=== PATIENT | male | born 1990 | race African-American/Black ===

== ENCOUNTER 2017-01-11 14:18 | Inpatient (IN) | payer OTHER ==
[2017-01-11 17:11] VITALS: BMI 22.1
[2017-01-11] MEDS ORDERED: MAG HYDROX/AL HYDROX/SIMETH 30 ML UNIT-DOSE CUP PO PRN (17:51)
[2017-01-11] MEDS ORDERED: MENTHOL/PHENOL 1 EACH UD MM PRN (17:51)
[2017-01-11] MEDS ORDERED: LOPERAMIDE HCL 2 MG CAPSULE PO PRN (17:51)
[2017-01-11] MEDS ORDERED: MAGNESIUM HYDROX 2400MG/30ML ORAL SUSPENSION 30 ML CUP PO PRN (17:51)
[2017-01-11] MEDS ORDERED: guaiFENesin/D-METHORPHAN HB 10 ML UNIT-DOSE CUPS PO PRN (17:51)
[2017-01-11] MEDS ORDERED: hydrOXYzine PAMOATE 50 MG CAPSULE (FP) PO PRN (17:51)
[2017-01-11] MEDS ORDERED: ACETAMINOPHEN 325 MG TABLET (FP) PO PRN (17:51)
[2017-01-11] MEDS ORDERED: P-EPHED 60MG/TRIPROLIDI 2.5MG TABLET PO PRN (17:51)
[2017-01-11] MEDS ORDERED: NICOTINE POLACRILEX 2 MG GUM BC PRN (17:51)
[2017-01-11] MEDS ORDERED: MAGNESIUM CITRATE 300 ML BOTTLE PO PRN (17:51)
--- NOTE | 2017-01-11 17:51 | HP ---
CIWA Score - CIWA Score Nausea/Vomitin-Mild Nausea/No Vomiting Muscle Tremors: 5 Anxiety: 5 Agitation: 3 Paroxysmal Sweats: 2 Orientation: 1-Uncertain about Date Tacttile Disturbances: 0-None Auditory Disturbances: 0-None Visual Disturbances: 0-None Headache: 0-None Present CIWA-Ar Total Score: 17 Admission ROS BHS - HPI Chief Complaint: WITHDRAWAL SX Allergies/Adverse Reactions: Allergies Allergy/AdvReac Type Severity Reaction Status Date / Time haloperidol [From Haldol] AdvReac Severe Swelling Verified 01/11/17 17:16 haloperidol lactate AdvReac Severe Swelling Verified 01/11/17 17:16 [From Haldol] History of Present Illness: 26 YEARS OLD MALE WITH LONG HISTORY OF ALCOHOL NICOTINE DEPENDENCE, HAS HIV SINCE 2011 AND DEPRESSION IS ADMITTED TO DETOX Exam Limitations: No Limitations - Ebola screening Have you traveled outside of the country in the last 21 days: No Have you had contact with anyone from an Ebola affected area: No Have you been sick,other than usual withdrawal symptoms: No Do you have a fever: No - Review of Systems Constitutional: Chills, Loss of Appetite, Changes in sleep, Unexplained wgt Loss EENT: reports: No Symptoms Reported Respiratory: reports: No Symptoms reported Cardiac: reports: No Symptoms Reported GI: reports: Nausea, Poor Fluid Intake, Abdominal cramping : reports: No Symptoms Reported Musculoskeletal: reports: No Symptoms Reported Integumentary: reports: No Symptoms Reported Neuro: reports: Tremors Endocrine: reports: No Symptoms Reported Hematology: reports: No Symptoms Reported Psychiatric: reports: Judgement Intact, Depressed Other Systems: Reviewed and Negative Patient History - Patient Medical History Hx Anemia: No Hx Asthma: No Hx Chronic Obstructive Pulmonary Disease (COPD): No Hx Cancer: No Hx Cardiac Disorders: No Hx Congestive Heart Failure: No Hx Hypertension: No Hx Hypercholesterolemia: No Hx Pacemaker: No HX Cerebrovascular Accident: No Hx Seizures: No Hx Dementia: No Hx Diabetes: No Hx Gastrointestinal Disorders: Yes Hx Liver Disease: No Hx Genitourinary Disorders: No Hx Sexually Transmitted Disorders: No Hx Renal Disease (ESRD): No Hx Human Immunodeficiency Virus (HIV): Yes (TESTED POSITIVE 05/04/2012. NOT ON MEDICATIONS, LAST DOSE "LONG TIME AGO") Hx Hepatitis C: No Hx Depression: Yes Hx Suicide Attempt: No Hx Bipolar Disorder: No Hx Schizophrenia: No - Patient Surgical History Past Surgical History: No Hx Neurologic Surgery: No Hx Cataract Extraction: No Hx Cardiac Surgery: No Hx Lung Surgery: No Hx Breast Surgery: No Hx Breast Biopsy: No Hx Abdominal Surgery: No Hx Appendectomy: No Hx Cholecystectomy: No Hx Genitourinary Surgery: No Hx Orthopedic Surgery: No - PPD History Previous Implant?: Yes Documented Results: Negative w/o proof Implanted On Prior [facility] Admission?: Yes Date: 07/13/15 Results: 0 mm PPD to be Administered?: Yes - Smoking Cessation Smoking history: Current every day smoker Have you smoked in the past 12 months: Yes Aproximately how many cigarettes per day: 20 Cigars Per Day: 0 Hx Chewing Tobacco Use: No Initiated information on smoking cessation: Yes 'Breaking Loose' booklet given: 01/11/17 - Substance & Tx. History Hx Alcohol Use: Yes Hx Substance Use: No Substance Use Type: Alcohol Hx Substance Use Treatment: Yes - Substances Abused Alcohol Route: Oral Frequency: Daily Amount used: 5 24 oz beers 2 pints vodka Age of first use: 23 Date of Last Use: 01/11/17 crystal meth Route: Smoking Frequency: Daily Amount used: 1/2 gram Age of first use: 24 Date of Last Use: 01/07/17 Family Disease History - Family Disease History Family Disease History: Heart Disease: Father (HTN,alcohol ), Mother (, alcohol,) Admission Physical Exam BHS - Vital Signs Vital Signs: Vital Signs - 24 hr 01/11/17 17:09 Temperature 97.7 F Pulse Rate 87 Respiratory 20 Rate Blood Pressure 112/60 - Physical General Appearance: Yes: Appropriately Dressed, Mild Distress, Alcohol on Breath , Thin, Tremorous, Irritable, Sweating, Anxious HEENTM: Yes: Hearing grossly Normal, Normal ENT Inspection, Normocephalic, Normal Voice Respiratory: Yes: Chest Non-Tender, Lungs Clear, Normal Breath Sounds, No Respiratory Distress, No Accessory Muscle Use Neck: Yes: Supple, Trachea in good position Breast: Yes: Breasts Symetrical Cardiology: Yes: Regular Rhythm, Regular Rate, S1, S2 Abdominal: Yes: Non Tender, Soft Genitourinary: Yes: Within Normal Limits Back: Yes: Normal Inspection Musculoskeletal: Yes: full range of Motion, Gait Steady Extremities: Yes: Normal Range of Motion, Non-Tender, Tremors Neurological: Yes: Alert, Motor Strength 5/5, Normal Response, Depressed Affect Integumentary: Yes: Warm, Moist, Track Rose (CRYSTAL METH IV) Lymphatic: Yes: Within Normal Limits - Diagnostic (1) Depression Current Visit: Yes Status: Suspected Qualifiers: Depression Type: dysthymia Qualified Code(s): F34.1 - Dysthymic disorder (2) Dry skin dermatitis Current Visit: Yes Status: Acute (3) HIV-1 infection Current Visit: Yes Status: Chronic Comment: SINCE 2011, CURRENTLY NO TREATMENT (4) Nicotine dependence Current Visit: Yes Status: Acute Qualifiers: Nicotine product type: cigarettes Substance use status: in withdrawal Qualified Code(s): F17.213 - Nicotine dependence, cigarettes, with withdrawal (5) Weight decreased Current Visit: Yes Status: Acute (6) Alcohol dependence with uncomplicated withdrawal Current Visit: Yes Status: Acute (7) GERD (gastroesophageal reflux disease) Current Visit: Yes Status: Acute Qualifiers: Esophagitis presence: without esophagitis Qualified Code(s): K21.9 - Gastro-esophageal reflux disease without esophagitis Cleared for Admission S - Detox or Rehab [facility] Level of Care: Medically Managed Detox Regimen/Protocol: Librium [facility] Breath Alcohol Content Breath Alcohol Content: 0.014 Urine Drug Screen - Results Drug Screen Negative: No Urine Drug Screen Results: BZO-Benzodiazepines
[2017-01-11] MEDS ORDERED: COLLOIDAL OATMEAL 1 BAR EACH TP PRN (17:53)
[2017-01-11] MEDS ORDERED: chlordiazePOXIDE HCL 25 MG CAPSULE PO ONE (19:15)
[2017-01-11] MEDS: MINERAL OIL/PETROLAT/WATER TOPICAL CREAM 113 GM JAR TP SCH (22:08)
[2017-01-11] MEDS: diphenhydrAMINE HCL 50 MG CAPSULE PO PRN (22:10)
[2017-01-11] MEDS: THIAMINE HCL 100 MG TABLET (FP) PO SCH (22:10)
[2017-01-11] MEDS: RANITIDINE HCL 150 MG TABLET (FP) PO SCH (22:10)
[2017-01-11] MEDS: chlordiazePOXIDE HCL 25 MG CAPSULE PO SCH (22:10)
[2017-01-11 22:54] LABS: URINE APPEARANCE CLEAR; URINE BILIRUBIN NEGATIVE (NEGATIVE); URINE BLOOD NEGATIVE (NEGATIVE); URINE COLOR COLORLESS; URINE GLUCOSE (UA) NEGATIVE (NEGATIVE); URINE KETONE NEGATIVE (NEGATIVE); URINE LEUK ESTERASE NEGATIVE (NEGATIVE); URINE NITRITE NEGATIVE (NEGATIVE); URINE PROTEIN NEGATIVE (NEGATIVE); URINE UROBILINOGEN NEGATIVE E.U./dl (0.2-1.0)
[2017-01-12] MEDS: chlordiazePOXIDE HCL 25 MG CAPSULE PO SCH ×4 (06:08→22:03)
[2017-01-12 10:10] LABS: MCH 27.3 pg (25.7-33.7); MEAN CELL VOLUME 82.7 fl (80-96); MEAN PLT VOLUME 11.2 fl (7.5-11.1); PLATELET COUNT 170 K/MM3 (134-434); RDW 14.6 % (11.9-15.9); WHITE BLOOD COUNT 4.8 K/mm3 (4.0-10.0)
[2017-01-12] MEDS: PRENATAL VITAMINS W/ FOLIC ACID TABLET (FP) PO SCH (10:36)
[2017-01-12] MEDS: RANITIDINE HCL 150 MG TABLET (FP) PO SCH ×2 (10:36→22:02)
[2017-01-12] MEDS: NICOTINE 21 MG/24 HOURS TOPICAL PATCH TD SCH (10:36)
--- NOTE | 2017-01-12 10:40 | PN ---
[facility] CIWA - CIWA Score Nausea/Vomitin-No Nausea/No Vomiting Muscle Tremors: 4-Moderate,w/Arms Extend Anxiety: 4-Mod. Anxious/Guarded Agitation: 4-Moderately Restless Paroxysmal Sweats: 1-Minimal Palms Moist Orientation: 0-Oriented Tacttile Disturbances: 3-Moderate Itch/Numb/Burn Auditory Disturbances: 0-None Visual Disturbances: 0-None Headache: 0-None Present CIWA-Ar Total Score: 16 S Progress Note (SOAP) Subjective: .ANXIETY,SWEATS/CHILLS,FATIGUE. Objective: 01/12/17 12:47 Vital Signs Temperature 97.1 F L 01/12/17 10:57 Pulse Rate 93 H 01/12/17 10:57 Respiratory Rate 18 01/12/17 10:57 Blood Pressure 112/66 01/12/17 10:57 O2 Sat by Pulse Oximetry (%) Laboratory Last Values WBC 4.8 K/mm3 (4.0-10.0) 01/12/17 05:50 RBC 4.82 M/mm3 (4.00-5.60) 01/12/17 05:50 Hgb 13.2 GM/dL (11.7-16.9) D 01/12/17 05:50 Hct 39.9 % (35.4-49) 01/12/17 05:50 MCV 82.7 fl (80-96) 01/12/17 05:50 MCHC 33.0 g/dl (32.0-35.9) 01/12/17 05:50 RDW 14.6 % (11.9-15.9) 01/12/17 05:50 Plt Count 170 K/MM3 (134-434) 01/12/17 05:50 MPV 11.2 fl (7.5-11.1) H D 01/12/17 05:50 Sodium 137 mmol/L (136-145) 01/12/17 05:50 Potassium 4.3 mmol/L (3.5-5.1) 01/12/17 05:50 Chloride 99 mmol/L (98-107) 01/12/17 05:50 Carbon Dioxide 24 mmol/L (21-32) 01/12/17 05:50 Anion Gap 14 (8-16) 01/12/17 05:50 BUN 12 mg/dL (7-18) 01/12/17 05:50 Creatinine 1.0 mg/dL (0.7-1.3) D 01/12/17 05:50 Creat Clearance w eGFR > 60 (>60) 01/12/17 05:50 Random Glucose 95 mg/dL (74-106) 01/12/17 05:50 Calcium 9.5 mg/dL (8.5-10.1) 01/12/17 05:50 Total Bilirubin 0.2 mg/dL (0.2-1.0) 01/12/17 05:50 AST 23 U/L (15-37) D 01/12/17 05:50 ALT 19 U/L (12-78) 01/12/17 05:50 Alkaline Phosphatase 68 U/L (45-117) D 01/12/17 05:50 Total Protein 7.9 g/dl (6.4-8.2) 01/12/17 05:50 Albumin 3.9 g/dl (3.4-5.0) 01/12/17 05:50 Urine Color Colorless 01/11/17 22:40 Urine Appearance Clear 01/11/17 22:40 Urine pH 6.0 (5.0-8.0) 01/11/17 22:40 Ur Specific [place] 1.008 (1.001-1.035) 01/11/17 22:40 Urine Protein Negative (NEGATIVE) 01/11/17 22:40 Urine Glucose (UA) Negative (NEGATIVE) 01/11/17 22:40 Urine Ketones Negative (NEGATIVE) 01/11/17 22:40 Urine Blood Negative (NEGATIVE) 01/11/17 22:40 Urine Nitrite Negative (NEGATIVE) 01/11/17 22:40 Urine Bilirubin Negative (NEGATIVE) 01/11/17 22:40 Urine Urobilinogen Negative E.U./dl (0.2-1.0) 01/11/17 22:40 Ur Leukocyte Esterase Negative (NEGATIVE) 01/11/17 22:40 RPR Titer Nonreactive (NONREACTIVE) 01/12/17 05:50 Assessment: 01/12/17 12:47 WITHDRAWAL SX Plan: CONTINUE DETOX
[2017-01-12 10:41] LABS: ALBUMIN 3.9 g/dl (3.4-5.0); ALK PHOS 68 U/L (45-117); ANION GAP 14 (8-16); BILIRUBIN,TOTAL 0.2 mg/dL (0.2-1.0); CALCIUM 9.5 mg/dL (8.5-10.1); CO2 24 mmol/L (21-32); GLUCOSE,RANDOM 95 mg/dL (74-106); SGOT/AST 23 U/L (15-37); SGPT/ALT 19 U/L (12-78); TOT PROT 7.9 g/dl (6.4-8.2)
--- NOTE | 2017-01-12 10:47 | EKG ---
Test Reason : Blood Pressure : / mmHG Vent. Rate : 086 BPM Atrial Rate : 086 BPM P-R Int : 144 ms QRS Dur : 084 ms QT Int : 394 ms P-R-T Axes : 054 063 053 degrees QTc Int : 471 ms NORMAL SINUS RHYTHM NORMAL ECG NO PREVIOUS ECGS AVAILABLE Confirmed by MILTON KAY MD ([id number]) on 01/12/2017 10:46:41 AM Referred By: Confirmed By:MILTON KAY MD
--- NOTE | 2017-01-12 12:43 | CONSULT ---
[facility] Psychiatric Consult - Data Date of interview: 01/12/17 Admission source: [facility] Identifying data: Readmission to [facility] for this 26 y/o AA male seeking detox treatment on for alcohol and metamphetamine dependence.Patient is single without children,homeless,unemployed and supported on [employer] funds. Substance Abuse History: - Smoking Cessation. Smoking history: Current every day smoker. Have you smoked in the past 12 months: Yes. Aproximately how many cigarettes per day: 20. Cigars Per Day: 0. Hx Chewing Tobacco Use: No. Initiated information on smoking cessation: Yes. 'Breaking Loose' booklet given : 01/11/17. - Substance & Tx. History. Hx Alcohol Use: Yes. Hx Substance Use : No. Substance Use Type: Alcohol. Hx Substance Use Treatment: Yes. - Substances Abused. Alcohol. Route: Oral. Frequency: Daily. Amount used: 5 24 oz beers 2 pints vodka. Age of first use: 23. Date of Last Use: . crystal meth. Route: Smoking. Frequency: Daily. Amount used: 1/2 gram. Age of first use: 24. Date of Last Use: 01/07/17. Confirmed by the patient. Medical History: HIV infection since 2011 and bronchial asthma. Psychiatric History: First contact with Psychiatry was in 2011 when he became distraught upon learning of his seropositive HIV status.Diagnosed with MDD and treated with quetiapine.Mr Grimaldo dropped out of OPD care about two years ago.He declines to reume psychotropic medications except for detoxification drugs present in this regimen. Physical/Sexual Abuse/Trauma History: Patient denies. Additional Comment: Urine Drug Screen Results: BZO-Benzodiazepines.Noted. Mental Status Exam - Mental Status Exam Alert and Oriented to: Time, Place, Person Cognitive Function: Good Patient Appearance: Well Groomed Mood: Hopeful, Euthymic Affect: Normal Range Patient Behavior: Appropriate, Cooperative Speech Pattern: Clear, Appropriate Voice Loudness: Normal Thought Process: Intact, Goal Oriented Thought Disorder: Not Present Hallucinations: Denies Suicidal Ideation: Denies Homicidal Ideation: Denies Insight/Judgement: Fair Sleep: Well Appetite: Good Muscle strength/Tone: Normal Gait/Station: Normal Psychiatric Findings - Problem List ([place] 1, 2,3) (1) Alcohol dependence with uncomplicated withdrawal Current Visit: Yes Status: Acute (2) Amphetamine abuse Current Visit: Yes Status: Chronic (3) Nicotine dependence Current Visit: Yes Status: Acute Qualifiers: Nicotine product type: cigarettes Substance use status: in withdrawal Qualified Code(s): F17.213 - Nicotine dependence, cigarettes, with withdrawal - Initial Treatment Plan Initial Treatment Plan: Psychoeducation.Detoxificatiion.Observation.
[2017-01-12] MEDS: MINERAL OIL/PETROLAT/WATER TOPICAL CREAM 113 GM JAR TP SCH (22:01)
[2017-01-12] MEDS: THIAMINE HCL 100 MG TABLET (FP) PO SCH (22:02)
[2017-01-12] MEDS: diphenhydrAMINE HCL 50 MG CAPSULE PO PRN (22:04)
[2017-01-13] MEDS: IBUPROFEN 400 MG TABLET (FP) PO PRN ×2 (00:27→19:58)
[2017-01-13] MEDS: diphenhydrAMINE HCL 50 MG CAPSULE PO PRN (01:56)
[2017-01-13] MEDS: chlordiazePOXIDE HCL 25 MG CAPSULE PO PRN (01:57)
[2017-01-13] MEDS: chlordiazePOXIDE HCL 25 MG CAPSULE PO SCH ×3 (06:07→17:09)
[2017-01-13] MEDS: PRENATAL VITAMINS W/ FOLIC ACID TABLET (FP) PO SCH (10:01)
[2017-01-13] MEDS: RANITIDINE HCL 150 MG TABLET (FP) PO SCH ×2 (10:01→22:08)
[2017-01-13] MEDS: NICOTINE 21 MG/24 HOURS TOPICAL PATCH TD SCH (10:02)
--- NOTE | 2017-01-13 11:30 | PN ---
[facility] CIWA - CIWA Score Nausea/Vomitin-No Nausea/No Vomiting Muscle Tremors: 4-Moderate,w/Arms Extend Anxiety: 4-Mod. Anxious/Guarded Agitation: 4-Moderately Restless Paroxysmal Sweats: 1-Minimal Palms Moist Orientation: 0-Oriented Tacttile Disturbances: 3-Moderate Itch/Numb/Burn Auditory Disturbances: 0-None Visual Disturbances: 0-None Headache: 0-None Present CIWA-Ar Total Score: 16 S Progress Note (SOAP) Subjective: ANXIETY,FATIGUE, SWEATS/CHILLS. Objective: 01/13/17 11:29 Vital Signs Temperature 96.0 F L 01/13/17 09:57 Pulse Rate 88 01/13/17 09:57 Respiratory Rate 20 01/13/17 09:57 Blood Pressure 110/72 01/13/17 09:57 O2 Sat by Pulse Oximetry (%) Laboratory Last Values WBC 4.8 K/mm3 (4.0-10.0) 01/12/17 05:50 RBC 4.82 M/mm3 (4.00-5.60) 01/12/17 05:50 Hgb 13.2 GM/dL (11.7-16.9) D 01/12/17 05:50 Hct 39.9 % (35.4-49) 01/12/17 05:50 MCV 82.7 fl (80-96) 01/12/17 05:50 MCHC 33.0 g/dl (32.0-35.9) 01/12/17 05:50 RDW 14.6 % (11.9-15.9) 01/12/17 05:50 Plt Count 170 K/MM3 (134-434) 01/12/17 05:50 MPV 11.2 fl (7.5-11.1) H D 01/12/17 05:50 Sodium 137 mmol/L (136-145) 01/12/17 05:50 Potassium 4.3 mmol/L (3.5-5.1) 01/12/17 05:50 Chloride 99 mmol/L (98-107) 01/12/17 05:50 Carbon Dioxide 24 mmol/L (21-32) 01/12/17 05:50 Anion Gap 14 (8-16) 01/12/17 05:50 BUN 12 mg/dL (7-18) 01/12/17 05:50 Creatinine 1.0 mg/dL (0.7-1.3) D 01/12/17 05:50 Creat Clearance w eGFR > 60 (>60) 01/12/17 05:50 Random Glucose 95 mg/dL (74-106) 01/12/17 05:50 Calcium 9.5 mg/dL (8.5-10.1) 01/12/17 05:50 Total Bilirubin 0.2 mg/dL (0.2-1.0) 01/12/17 05:50 AST 23 U/L (15-37) D 01/12/17 05:50 ALT 19 U/L (12-78) 01/12/17 05:50 Alkaline Phosphatase 68 U/L (45-117) D 01/12/17 05:50 Total Protein 7.9 g/dl (6.4-8.2) 01/12/17 05:50 Albumin 3.9 g/dl (3.4-5.0) 01/12/17 05:50 Urine Color Colorless 01/11/17 22:40 Urine Appearance Clear 01/11/17 22:40 Urine pH 6.0 (5.0-8.0) 01/11/17 22:40 Ur Specific [place] 1.008 (1.001-1.035) 01/11/17 22:40 Urine Protein Negative (NEGATIVE) 01/11/17 22:40 Urine Glucose (UA) Negative (NEGATIVE) 01/11/17 22:40 Urine Ketones Negative (NEGATIVE) 01/11/17 22:40 Urine Blood Negative (NEGATIVE) 01/11/17 22:40 Urine Nitrite Negative (NEGATIVE) 01/11/17 22:40 Urine Bilirubin Negative (NEGATIVE) 01/11/17 22:40 Urine Urobilinogen Negative E.U./dl (0.2-1.0) 01/11/17 22:40 Ur Leukocyte Esterase Negative (NEGATIVE) 01/11/17 22:40 RPR Titer Nonreactive (NONREACTIVE) 01/12/17 05:50 Assessment: 01/13/17 11:29 WITHDRAWAL SX Plan: CONTINUE DETOX
--- NOTE | 2017-01-13 20:32 | PN ---
BHS Progress Note Note: TOOTH ACHE BEGIN LIDOCAIN 2% 20 ML TID BEFORE MEAL + AMOXICILLIN 500 MG BID X 3 DAYS CONTINUE DETOX
[2017-01-13] MEDS: chlordiazePOXIDE 5 MG CAPSULE PO SCH (22:08)
[2017-01-13] MEDS: LIDOCAINE VISCOUS 2% ORAL/TOP 20 ML UNIT-DOSE CUP MM SCH (22:08)
[2017-01-13] MEDS: AMOXICILLIN 500 MG CAPSULE (FP) PO SCH (22:08)
[2017-01-13] MEDS: THIAMINE HCL 100 MG TABLET (FP) PO SCH (22:08)
[2017-01-13] MEDS: MINERAL OIL/PETROLAT/WATER TOPICAL CREAM 113 GM JAR TP SCH (22:09)
[2017-01-14] MEDS: chlordiazePOXIDE HCL 25 MG CAPSULE PO PRN (01:34)
[2017-01-14] MEDS: diphenhydrAMINE HCL 50 MG CAPSULE PO PRN ×2 (01:34→22:09)
[2017-01-14] MEDS: chlordiazePOXIDE 5 MG CAPSULE PO SCH ×3 (06:30→17:19)
[2017-01-14] MEDS: LIDOCAINE VISCOUS 2% ORAL/TOP 20 ML UNIT-DOSE CUP MM SCH ×3 (06:30→22:09)
[2017-01-14] MEDS: AMOXICILLIN 500 MG CAPSULE (FP) PO SCH ×2 (10:34→22:10)
[2017-01-14] MEDS: NICOTINE 21 MG/24 HOURS TOPICAL PATCH TD SCH (10:34)
[2017-01-14] MEDS: RANITIDINE HCL 150 MG TABLET (FP) PO SCH ×2 (10:35→22:09)
[2017-01-14] MEDS: PRENATAL VITAMINS W/ FOLIC ACID TABLET (FP) PO SCH (10:35)
--- NOTE | 2017-01-14 10:52 | PN ---
BHS Progress Note (SOAP) Subjective: ANXIETY,CHILLS/SWEATS,FATIGUE. Objective: 01/14/17 10:51 Vital Signs Temperature 97.6 F 01/14/17 10:26 Pulse Rate 97 H 01/14/17 10:26 Respiratory Rate 18 01/14/17 10:26 Blood Pressure 127/73 01/14/17 10:26 O2 Sat by Pulse Oximetry (%) Assessment: 01/14/17 10:51 WITHDRAWAL SX 01/14/17 10:51 Plan: CONTINUE DETOX.
[2017-01-14] MEDS: IBUPROFEN 400 MG TABLET (FP) PO PRN ×2 (15:50→23:29)
[2017-01-14 17:06] VITALS: TEMP 97.8
[2017-01-14] MEDS: chlordiazePOXIDE HCL 10 MG CAPSULE PO SCH (22:09)
[2017-01-14] MEDS: MINERAL OIL/PETROLAT/WATER TOPICAL CREAM 113 GM JAR TP SCH (22:09)
[2017-01-14] MEDS: THIAMINE HCL 100 MG TABLET (FP) PO SCH (22:09)
[2017-01-15] MEDS: LIDOCAINE VISCOUS 2% ORAL/TOP 20 ML UNIT-DOSE CUP MM SCH ×2 (06:03→07:52)
[2017-01-15] MEDS: chlordiazePOXIDE HCL 10 MG CAPSULE PO SCH (06:03)
[2017-01-15] MEDS: IBUPROFEN 400 MG TABLET (FP) PO PRN (07:07)
--- NOTE | 2017-01-15 08:40 | DS ---
[facility] Detox Discharge Summary Admission Date: 01/11/17 Discharge Date: 01/15/17 - History Present History: Alcohol Dependence, Cocaine Dependence Pertinent Past History: GERD HIV infection - Physical Exam Results Vital Signs: Vital Signs Temperature 97.8 F 01/14/17 17:05 Pulse Rate 91 H 01/14/17 17:05 Respiratory Rate 18 01/15/17 03:30 Blood Pressure 90/60 01/14/17 17:05 O2 Sat by Pulse Oximetry (%) Pertinent Admission Physical Exam Findings: Withdrawal sx. Laboratory Tests 01/11/17 01/12/17 01/12/17 22:40 05:50 05:50 WBC 4.8 RBC 4.82 Hgb 13.2 D Hct 39.9 MCV 82.7 MCHC 33.0 RDW 14.6 Plt Count 170 MPV 11.2 H D Sodium 137 Potassium 4.3 Chloride 99 Carbon Dioxide 24 Anion Gap 14 BUN 12 Creatinine 1.0 D Creat Clearance w eGFR > 60 Random Glucose 95 Calcium 9.5 Total Bilirubin 0.2 AST 23 D ALT 19 Alkaline Phosphatase 68 D Total Protein 7.9 Albumin 3.9 Urine Color Colorless Urine Appearance Clear Urine pH 6.0 Ur Specific [place] 1.008 Urine Protein Negative Urine Glucose (UA) Negative Urine Ketones Negative Urine Blood Negative Urine Nitrite Negative Urine Bilirubin Negative Urine Urobilinogen Negative Ur Leukocyte Esterase Negative RPR Titer 01/12/17 05:50 WBC RBC Hgb Hct MCV MCHC RDW Plt Count MPV Sodium Potassium Chloride Carbon Dioxide Anion Gap BUN Creatinine Creat Clearance w eGFR Random Glucose Calcium Total Bilirubin AST ALT Alkaline Phosphatase Total Protein Albumin Urine Color Urine Appearance Urine pH Ur Specific [place] Urine Protein Urine Glucose (UA) Urine Ketones Urine Blood Urine Nitrite Urine Bilirubin Urine Urobilinogen Ur Leukocyte Esterase RPR Titer Nonreactive labs noted - Treatment Hospital Course: Detox Protocol Followed, Detoxed Safely, Responded well, Discharged Condition Good, Rehab Referral Accepted - Medication Discharge Medications: Ambulatory Orders NK [No Known Home Medication] 01/11/17 - Diagnosis (1) Alcohol dependence with uncomplicated withdrawal Current Visit: Yes Status: Acute (2) GERD (gastroesophageal reflux disease) Current Visit: Yes Status: Acute Qualifiers: Esophagitis presence: without esophagitis Qualified Code(s): K21.9 - Gastro-esophageal reflux disease without esophagitis (3) Nicotine dependence Current Visit: Yes Status: Acute Qualifiers: Nicotine product type: cigarettes Substance use status: in withdrawal Qualified Code(s): F17.213 - Nicotine dependence, cigarettes, with withdrawal (4) Cannabis dependence Current Visit: Yes Status: Chronic (5) HIV-1 infection Current Visit: Yes Status: Chronic (6) Cocaine dependence Current Visit: No Status: Acute Qualifiers: Substance use status: uncomplicated Qualified Code(s): F14.20 - Cocaine dependence, uncomplicated - AMA Did Patient Leave Against Medical Advice: No
[2017-01-15 09:28] VITALS: BP 113/70; PULSE 87
== END 2017-01-15 09:00 | disposition home or self-care (01) | DRG 774 ==
LOC: YASAS 14:18 → Y3N 18:40
PROVIDERS: ADMIT Internal Medicine; ATTEND Internal Medicine
PROC: HZ2ZZZZ Detoxification Services for Substance Abuse Treatment (ICD-10-PCS; principal; 2017-01-15)
DX: F10.230 Alcohol dependence with withdrawal, uncomplicated (principal); F14.20 Cocaine dependence, uncomplicated; F12.20 Cannabis dependence, uncomplicated; F17.213 Nicotine dependence, cigarettes, with withdrawal; F15.10 Other stimulant abuse, uncomplicated; F34.1 Dysthymic disorder; Z21 Asymptomatic human immunodeficiency virus [HIV] infection status; K21.9 Gastro-esophageal reflux disease without esophagitis; L85.3 Xerosis cutis; R63.4 Abnormal weight loss; Z68.21 Body mass index [BMI] 21.0-21.9, adult
CPT/HCPCS: 36415; 80053; 81003; 85027; 86593; 93005; 93010